=== PATIENT | female | born 1965 | race African-American/Black ===

== ENCOUNTER 2022-07-30 09:33 | Day surgery (SDC) | payer OTHER ==
[2022-07-30] MEDS ORDERED: Sodium Bicarbonate 2.5 MEQ/5 ML VIAL ONE (10:17)
[2022-07-30] MEDS ORDERED: Lidocaine 1% PF 5 ML VIAL ONE (10:17)
[2022-07-30 10:47] VITALS: BP 124/75; TEMP 98.8
[2022-07-30] MEDS ORDERED: Fentanyl 100 MCG/2 ML VIAL ONE (11:31)
[2022-07-30] MEDS ORDERED: Midazolam HCl 5 mg/5 ml Vial ONE (11:32)
[2022-07-30 11:37] LABS: MDiff Complete? YES; Mean Corpuscular HGB CONC 33.9 g/dL (32.0-36.0); Mean Corpuscular Hemoglobin 30.9 pg (27.0-33.0); Mean Platelet Volume 10.1 fl (7.4-10.4); Platelet Count 212 10x3/uL (150-450); RBC Distribution Width 12.3 % (11.5-14.5); Red Blood Cell (RBC) Count 4.21 10x6/uL (3.90-5.03); White Blood Cell (WBC) Count 2.4 10x3/uL (3.5-10.5)
[2022-07-30 11:42] LABS: INR-International Normal Ratio 0.9; Prothrombin Time 10.2 sec (9.5-12.1)
[2022-07-30 12:00] LABS: Lymphocytes 52 % (21-51); Neutrophil 35 % (42-75)
[2022-07-30 12:01] LABS: Eosinophils 9 % (0-10); Monocytes 1 % (0-10); Reactive Lymphocytes 2 % (0-10)
[2022-07-30 12:02] LABS: Platelet Morphology Comment Appears Adequate
[2022-07-30 12:03] LABS: RBC Morphology Normal
== END 2022-07-30 13:30 | disposition home or self-care (01) ==
LOC: CSHCT 09:33
PROVIDERS: ATTEND Internal Medicine Hematology & Oncology
PROC: 07DR3ZX Extraction of Iliac Bone Marrow, Percutaneous Approach, Diagnostic (ICD-10-PCS; principal; 2022-07-30)
PROC: 079T3ZX Drainage of Bone Marrow, Percutaneous Approach, Diagnostic (ICD-10-PCS; principal; 2022-07-30)
DX: D72.818 Other decreased white blood cell count (principal); R63.0 Anorexia; K21.9 Gastro-esophageal reflux disease without esophagitis; Z79.899 Other long term (current) drug therapy; Z88.5 Allergy status to narcotic agent; Z68.1 Body mass index [BMI] 19.9 or less, adult
CPT/HCPCS: 38222; 85025; 85097; 85610; 88184; 88185; 88237; 88305; 88311; 88313; 99152; J2250; J3010